=== PATIENT | female | born 1965 | race African-American/Black ===

== ENCOUNTER 2017-05-16 08:54 | Emergency (ER) | payer OTHER, BC ==
[~2017-05-16] VITALS: Ht 162.6 cm; Wt 63.0 kg
[~2017-05-16 08:54] MED LIST: ANTIVERT12.5 MG PO; CARAFATE1 GM PO; LIPI10 PO; MYL80 CH
[2017-05-16 10:42] VITALS: BP 111/81
== END 2017-05-16 10:42 | disposition home or self-care (01) ==
LOC: ED 08:54
DX: J02.9 Acute pharyngitis, unspecified (principal); J98.01 Acute bronchospasm

== ENCOUNTER 2018-08-21 11:11 | Emergency (ER) | payer SELFPAY ==
[~2018-08-21] VITALS: Ht 162.6 cm; Wt 60.8 kg
[2018-08-21 11:19] VITALS: BP 136/94; Ht 162.6 cm; Wt 60.8 kg
== END 2018-08-21 14:02 | disposition home or self-care (01) ==
LOC: ED 11:11
DX: S83.92XA Sprain of unspecified site of left knee, initial encounter (principal); S80.02XA Contusion of left knee, initial encounter; W18.09XA Striking against other object with subsequent fall, initial encounter; Y93.89 Activity, other specified; Y92.89 Other specified places as the place of occurrence of the external cause; Y99.8 Other external cause status
CPT/HCPCS: Q0092